=== PATIENT | female | born 1930 | race Caucasian/White ===

== ENCOUNTER 2018-08-01 09:06 | Emergency (ER) | payer OTHER ==
[~2018-08-01] VITALS: Ht 152.4 cm; Wt 43.1 kg
[2018-08-01] MEDS ORDERED: AMOXICILLIN500 M1 (09:36)
[2018-08-01] MEDS ORDERED: ASA81 MG (09:37)
[2018-08-01] MEDS ORDERED: ANASTROZOLE1 MG (09:37)
[2018-08-01] MEDS ORDERED: ATELVIA35 MG (09:38)
[2018-08-01] MEDS ORDERED: TENORMIN25 MG (09:38)
[2018-08-01] MEDS ORDERED: COMPRESSION STOCKING (09:42)
[2018-08-01] MEDS ORDERED: GABAPENTIN100 MG (09:43)
[2018-08-01] MEDS ORDERED: COZAAR25 MG (09:44)
[2018-08-01] MEDS ORDERED: LIDOCAINE5 GM (09:44)
[2018-08-01] MEDS ORDERED: ENDOCET 10-3251 EACH (09:45)
[2018-08-01] MEDS ORDERED: PRAMIPEXOLE D0.25 MG (09:46)
[2018-08-01] MEDS ORDERED: PROBIOTIC1 EAC2 (09:46)
[2018-08-01] MEDS ORDERED: VERAPAMIL ER240 MG (09:47)
== END 2018-08-01 13:41 | disposition home or self-care (01) ==
LOC: ER 09:06
DX: S86.812A Strain of other muscle(s) and tendon(s) at lower leg level, left leg, initial encounter (principal); M25.062 Hemarthrosis, left knee; W22.8XXA Striking against or struck by other objects, initial encounter; Y93.89 Activity, other specified; Y92.832 Beach as the place of occurrence of the external cause; Y99.8 Other external cause status